=== PATIENT | male | born 1950 | race Caucasian/White ===

== ENCOUNTER 2022-11-14 17:53 | Inpatient (IN) | payer MEDICARE, BC ==
[~2022-11-14] VITALS: Ht 167.6 cm; Wt 100.7 kg
[2022-11-14] MEDS ORDERED: ADENOSINE 6 MG/2 ML VIAL ONE ×3 (18:04→18:15)
--- NOTE | 2022-11-14 18:10 | NUR ---
md and rt at bedside
[2022-11-14] MEDS ORDERED: ADENOSINE 6 MG/2 ML VIAL IVP ONE ×2 (18:13→18:15)
--- NOTE | 2022-11-14 18:13 | NUR ---
adenosine 6mg ivp given as indicated, hr-167
--- NOTE | 2022-11-14 18:14 | NUR ---
adenosine 12mg ivp given as indicated, hr-155
--- NOTE | 2022-11-14 18:24 | NUR ---
MOVE SHEET SUBMITTED.
[2022-11-14] MEDS ORDERED: DILTIAZEM HCL 50 MG IV ONE (18:27)
[2022-11-14] MEDS ORDERED: DILTIAZEM HCL 25 MG IV IVP ONE (18:30)
[2022-11-14] MEDS ORDERED: DILTIAZEM HCL IV 125 MG in IV D5W 100 ML IV ONE (18:30)
--- NOTE | 2022-11-14 18:40 | NUR ---
urine collected and sent to lab
--- NOTE | 2022-11-14 18:40 | NUR ---
covid swab collected and sent to lab
[2022-11-14] MEDS ORDERED: TAMS-12 PO (19:10)
[2022-11-14] MEDS ORDERED: FERR325T23 PO (19:10)
[2022-11-14] MEDS ORDERED: OMEP40CA21 PO (19:10)
[2022-11-14] MEDS ORDERED: AMLO-213 PO (19:10)
[2022-11-14] MEDS ORDERED: METO200T49 PO (19:10)
[2022-11-14] MEDS ORDERED: IRBE300T19 PO (19:10)
[2022-11-14] MEDS ORDERED: ZINC50TA65 PO (19:10)
[2022-11-14] MEDS ORDERED: ALLO100T PO (19:10)
[2022-11-14] MEDS ORDERED: FURO20TA4 PO (19:10)
[2022-11-14] MEDS ORDERED: CHOL100043 PO (19:11)
--- NOTE | 2022-11-14 19:20 | NUR ---
CARDIZEM DRIP INCREASED TO 20ML/HR, HR-150, BP-140/84 Addendum: 11/14/22 at 1935 by SARI correction: cardizem drip increased to 15ml/hr
[2022-11-14] MEDS ORDERED: AMIODARONE 150 MG in IV D5W 100 ML IV ONE (19:30)
[2022-11-14] MEDS ORDERED: AMIODARONE 450 MG in IV D5W 250 ML IV ONE (19:30)
--- NOTE | 2022-11-14 19:35 | NUR ---
RECEIVED PT IN ER ROOM 8, PT IS ALERT AND ORIENTED. RR IS EVEN AND NON LABORED. PT IS FROM HOME, AMBULATORY. CONNECTED TO POX AND HEART MONITOR. IV LINE NOTED ON RAC20G AND [id number]. PTS HR 152 ON CARDIZEM DRIP @20MG/HR, AWARE. WILL CONTINUE TO MONITOR
[2022-11-14 19:54] LABS: CALCIUM, SERUM 8.8 mg/dL (8.5-10.1); CARBON DIOXIDE 23 mmol/L (21-32); CHLORIDE 100 mmol/L (98-107); CREATININE 1.9 mg/dL (0.6-1.3); GLUCOSE 302 mg/dL (74-106); SODIUM SERUM 137 mmol/L (136-145); UREA NITROGEN, BLOOD 28 mg/dL (7-18)
[2022-11-14 20:07] LABS: BASOPHILS % (AUTO) 0.4 % (0.0-2.0); EOSINOPHILS % (AUTO) 6.4 % (0.0-6.0); HEMATOCRIT 44 % (39-51); HEMOGLOBIN 14.2 g/dL (13.5-17.5); LYMPHOCYTES # (AUTO) 1.2 K/uL (0.8-4.8); LYMPHOCYTES % (AUTO) 11.4 % (20.0-44.0); MEAN CORPUSCULAR HGB CONC 32 g/dl (31.0-36.0); MEAN CORPUSCULAR VOLUME 77 fL (80-96); MONOCYTES # (AUTO) 0.7 K/uL (0.1-1.30); MONOCYTES % (AUTO) 6.9 % (2.0-12.0); NEUTROPHILS # (AUTO) 7.7 K/uL (1.8-8.9); NEUTROPHILS % (AUTO) 74.9 % (43.0-81.0); PLATELET COUNT (AUTO) 186 K/uL (150-450); RED BLOOD CELL COUNT(AUTO) 5.74 MIL/uL (4.5-6.0); WHITE BLOOD COUNT (AUTO) 10.3 K/uL (4.3-11.0)
--- NOTE | 2022-11-14 20:55 | NUR ---
FOOD AND DRINK PROVIDED, PT TOLERATING WELL
--- NOTE | 2022-11-14 21:15 | NUR ---
ROOM 105
[2022-11-14 21:25] LABS: MAGNESIUM 2.1 mg/dL (1.8-2.4)
--- NOTE | 2022-11-14 21:27 | NUR ---
REPORT GIVEN TO PRINCESS CARBALLO FOR MICHAEL
[2022-11-14] MEDS ORDERED: IV NS 0.9% 1,000 ML IV ONE (21:30)
[2022-11-14] MEDS ORDERED: POTASSIUM CL. PREMIX PERIPHER. 200 ML ONE (21:35)
[2022-11-14 21:38] LABS: THYROID STIMULATING HORMONE 2.184 uIU/mL (0.358-3.74)
[2022-11-14] MEDS: Magnesium 1GM/D5W 100ML PREMIX 100 ML IV SCH ×2 (21:52→23:29)
[2022-11-14] MEDS ORDERED: ENOXAPARIN SODIUM 100 MG/ML DISP.SYRIN SQ STA (21:52)
[2022-11-14] MEDS ORDERED: ASPIRIN 81 MG TAB.CHEW PO STA (21:52)
[2022-11-14] MEDS: POTASSIUM CL. PREMIX PERIPHER. 50 ML IV SCH ×2 (21:57→22:50)
[2022-11-14] MEDS ORDERED: ZOLPIDEM TARTRATE 5 MG TABLET PO PRN (22:00)
[2022-11-14] MEDS ORDERED: ONDANSETRON HCL/PF 4 MG/2 ML VIAL IVP PRN (22:00)
[2022-11-14] MEDS ORDERED: MAG HYDROX/AL HYDROX/SIMETH 30 ML UDC PO PRN (22:00)
[2022-11-14] MEDS ORDERED: ACETAMINOPHEN 325 MG TABLET PO PRN (22:00)
[2022-11-14] MEDS ORDERED: Z GUARD REMEDY 4 OZ OINT TP PRN (22:00)
[2022-11-14] MEDS ORDERED: MAGNESIUM HYDROXIDE 30 ML UDC PO PRN (22:00)
[2022-11-14] MEDS ORDERED: ENOXAPARIN SODIUM 100 MG/ML DISP.SYRIN SQ ONE (22:02)
[2022-11-14] MEDS ORDERED: ASPIRIN 325 MG TABLET ONE (22:02)
--- NOTE | 2022-11-14 22:14 | NUR ---
PATIENT BEING TRANSFFERED TO 105
--- NOTE | 2022-11-14 23:00 | NUR ---
RN INITIAL NOTE PT ARRIVED TO UNIT VIA GURNEY; ABLE TO AMBULATE TO BED FROM [facility]. PT ADMITTED [facility] AFIB RVR WITH MEDICAL HISTORY OF HTN, HLD, DM. DENIES SMOKING; DRINKS WINE AND COCKTAILS ON OCCASION. PT A&O X4, CALM, COOPERATIVE. PT ON ROOM AIR WITH CURRENT O2SAT OF 93%; PT DENIES FEELING SOB; NO OTHER S/S OF RESP DISTRESS NOTED. PT ATTACHED TO EXTERNAL MONITOR, CURRENTLY AFIB WITH HR OF 92. IV ACCESS ON RAC 20G AND RIGHT WRIST 20G, INTACT AND PATENT, WITH AMIO INFUSING AT 1 MG/MIN WITH RATE OF 33.3 ML/HR; WILL DECREASE DOSE TO 0.5 MG/MIN AT 0215; POTASSIUM ALSO INFUSING AT 50 ML/HR. BED IN LOWEST POSITION, CALL LIGHT WITHIN REACH, SIDE RAILS UP X2. WILL INITIATE PLAN OF CARE.
--- NOTE | 2022-11-14 23:04 | NUR ---
2304 Critical serial troponin results 111 @ 2040 and 132 @ 2202 reported to IV THERAPY NURSE Hilda with no order at this time.
[2022-11-15] VITALS: BP 142/76
[2022-11-15] MEDS ORDERED: DEXTROSE 50%-WATER 50 ML DISP.SYRIN IV PRN (00:30)
[2022-11-15] MEDS: POTASSIUM CL. PREMIX PERIPHER. 50 ML IV SCH ×2 (01:13→01:56)
[2022-11-15] MEDS ORDERED: AMIODARONE 150 MG/3 ML VIAL IV ONE (02:14)
--- NOTE | 2022-11-15 02:15 | NUR ---
RN NOTE AMIO DRIP DOSE RATE DECREASED TO 0.5 MG/MIN AT 16.67 ML/HR
[2022-11-15 04:00] VITALS: BP 158/87
[2022-11-15 04:48] LABS: BASOPHILS % (AUTO) 0.4 % (0.0-2.0); EOSINOPHILS % (AUTO) 3.6 % (0.0-6.0); HEMATOCRIT 39 % (39-51); HEMOGLOBIN 12.3 g/dL (13.5-17.5); LYMPHOCYTES # (AUTO) 0.7 K/uL (0.8-4.8); LYMPHOCYTES % (AUTO) 8.2 % (20.0-44.0); MEAN CORPUSCULAR HGB CONC 31 g/dl (31.0-36.0); MEAN CORPUSCULAR VOLUME 77 fL (80-96); MONOCYTES # (AUTO) 0.8 K/uL (0.1-1.30); NEUTROPHILS # (AUTO) 6.2 K/uL (1.8-8.9); NEUTROPHILS % (AUTO) 77.8 % (43.0-81.0); PLATELET COUNT (AUTO) 171 K/uL (150-450); RED BLOOD CELL COUNT(AUTO) 5.06 MIL/uL (4.5-6.0)
[2022-11-15 04:55] LABS: CALCIUM, SERUM 8.6 mg/dL (8.5-10.1); CHLORIDE 101 mmol/L (98-107); CREATININE 1.8 mg/dL (0.6-1.3); GLUCOSE 268 mg/dL (74-106); MAGNESIUM 2.8 mg/dL (1.8-2.4); PHOSPHORUS 3.2 mg/dL (2.5-4.9); POTASSIUM 3.3 mmol/L (3.5-5.1); SODIUM SERUM 136 mmol/L (136-145); UREA NITROGEN, BLOOD 23 mg/dL (7-18)
[2022-11-15] MEDS ORDERED: AMIODARONE 450 MG in IV D5W 241 ML IV PRN (05:00)
--- NOTE | 2022-11-15 05:15 | NUR ---
0515 Critical troponin 233 reported to THADDEUS Stevens with order made.
[2022-11-15 05:46] LABS: BASOPHILS % (MANUAL) 0 % (0.0-2.0); EOSINOPHILS % (MANUAL) 2 % (0-4); LYMPHOCYTES % (MANUAL) 6 % (16-48); MONOCYTES % (MANUAL) 12 % (0-11.0); NEUTROPHILS % (MANUAL) 80 (42-76)
[2022-11-15 06:10] LABS: CARBON DIOXIDE 25 mmol/L (21-32)
--- NOTE | 2022-11-15 06:49 | NUR ---
MEKHI RN CLOSING NOTE PT REMAINS IN BED, ASLEEP BUT EASILY AROUSABLE; SLEPT WELL THROUGHOUT THE NIGHT; A&O X4, CALM, COOPERATIVE. CONTINUES TO BE ON ROOM AIR WITH O2SAT RANGING FROM 93%-97%; NO S/S OF RESP DISTRESS. ATTACHED TO EXTERNAL MONITOR, ACHIEVED SR WITH HR RANGING FROM 78-81; HR GOT HIGH 130S WHEN PT WAS AMBULATING TO RESTROOM. RAC AND RIGHT WRIST 20G INTACT AND PATENT, FLUSHES EASILY WITH NO RESISTANCE; AMIO 0.5 MG/MIN AT 16.67 ML/HR AND NS TKO INFUSING. ALL DUE MEDS ADMINISTERED DURING THE NIGHT. BED IN LOWEST POSITION, CALL LIGHT WITHIN REACH, SIDE RAILS UP X2. WILL ENDORSE TO DAYSHIFT NURSE TO CONTINUE CARE.
--- NOTE | 2022-11-15 07:05 | NUR ---
MEKHI RN OPENING NOTE: RECEIVED PT. IN BED, AWAKE, A&O X4, NO COMPLAINTS OF PAIN/DISCOMFORT AT THIS TIME. PT ON RA, NO S/S OF RESPIRATORY DISTRESS. NURSE RECRUITER READS NSR AT THIS TIME. AMBULATES TO THE BATHROOM WITH MIN ASSIST, VOIDING CLEAR YELLOW URINE, NO PAIN/DISCOMFORT REPORTED WHILE VOIDING. SKIN INTACT. IV ACCESS ON R WRIST 20G WITH AMIODARONE DRIP RUNNING AT 6.6 ML/HR; R AC #20G GOT DISLODGED, REMOVED AND PRESSURE DRESSING APPLIED. SAFETY MEASURES IN PLACE: BED IN LOWEST & LOCKED POSITION, CALL LIGHT WITHIN REACH, SIDE RAILS UP X3, HOB ELEVATED AT 30 DEGREES, CALL LIGHT WITHIN REACH, BED ALARM ON. WILL CONTINUE TO MONITOR PT. FOR ANY CHANGES.
[2022-11-15] MEDS: BLOOD SUGAR DIAGNOSTIC 1 EACH STRIP VI SCH ×4 (07:54→21:10)
[2022-11-15 08:00] VITALS: BP 159/85
[2022-11-15] MEDS: AMLODIPINE BESYLATE 10 MG TABLET PO SCH (08:11)
[2022-11-15] MEDS: ZINC SULFATE 220 MG CAPSULE PO SCH (08:11)
[2022-11-15] MEDS: CHOLECALCIFEROL 1,000 UNIT TABLET (VIT D3) PO SCH (08:11)
[2022-11-15] MEDS: ALLOPURINOL 100 MG TABLET PO SCH (08:11)
[2022-11-15] MEDS: TAMSULOSIN 0.4 MG CAP.SR.24H PO SCH (08:11)
[2022-11-15] MEDS: PANTOPRAZOLE 40 MG TABLET.DR PO SCH ×2 (08:11→16:28)
[2022-11-15] MEDS: hydrALAZINE HCL 50 MG TABLET PO SCH ×3 (08:16→16:28)
[2022-11-15] MEDS: INSULIN REGULAR, HUMAN 100 UNIT/ML 3 ML VIAL SQ PRN ×3 (08:19→17:31)
[2022-11-15] MEDS ORDERED: LOSARTAN POTASSIUM 50 MG TABLET PO SCH (09:00)
[2022-11-15] MEDS ORDERED: FERROUS SULFATE (325 MG) 325 MG/TAB TABLET PO SCH (09:00)
[2022-11-15] MEDS ORDERED: APIXABAN 2.5 MG TABLET PO SCH (09:00)
[2022-11-15] MEDS: ENOXAPARIN SODIUM 80 MG/0.8 ML DISP.SYRIN SQ SCH ×2 (09:37→20:57)
[2022-11-15] MEDS: NITROGLYCERIN 30 GM TUBE TP SCH ×2 (09:37→20:43)
[2022-11-15] MEDS: IV NS 0.9% 1,000 ML IV PRN ×2 (10:04→21:06)
[2022-11-15 12:00] VITALS: BP 142/68
[2022-11-15] MEDS ORDERED: POTASSIUM CHLORIDE 10 MEQ TABLET.SA PO ONE (12:00)
--- NOTE | 2022-11-15 12:30 | NUR ---
[employer] FSCM DEVELOPER NOTE: POTASSIUM AT 3.3 TODAY, 10 MEQ GIVEN PER MD ORDER.
[2022-11-15 16:00] VITALS: BP 134/71
--- NOTE | 2022-11-15 19:10 | NUR ---
MEKHI RN CLOSING NOTE: PT. REMAINS IN BED, AWAKE, A&O X4, NO COMPLAINTS OF PAIN/DISCOMFORT AT THIS TIME. PT ON RA, NO S/S OF RESPIRATORY DISTRESS. KETTLE OPERATOR HEAD READS NSR THIS SHIFT. AMBULATES TO THE BATHROOM WITH MIN ASSIST, VOIDED 2X CLEAR YELLOW URINE, NO PAIN/DISCOMFORT REPORTED WHILE VOIDING. 1 BM. SKIN INTACT. IV ACCESS ON R FOREARM #20G, WITH NS RUNNING AT 100 ML/HR. IV SITE DRESSING C/D/I WITH NO S/S OF INFILTRATION. SAFETY MEASURES MAINTAINED: BED IN LOWEST & LOCKED POSITION, CALL LIGHT WITHIN REACH, SIDE RAILS UP X3, HOB ELEVATED AT 30 DEGREES, CALL LIGHT WITHIN REACH, BED ALARM ON. ENCOURAGED FREQUENT REPOSITIONING IN BED AT LEAST Q2H. ENDORSED CONTINUITY OF CARE TO INDUSTRIAL RELATIONS COMMISSIONER RN.
--- NOTE | 2022-11-15 19:12 | NUR ---
RN NOTE RECEIVED PT FOR CONTINUITY OF CARE. PATIENT A/OX4 IN NO S/SX OF ACUTE DISTRESS AT THIS TIME; CURRENTLY ON ROOM AIR; WITH 02 SAT >95% AT THIS TIME. WITH IV ACCESS PATENT, INTACT AND FLUSHING WELL. WITH RUNNING NS@100CC/HR. WILL ENSURE SAFETY MEASURES WITHIN THE SHIFT. PATIENT BED ALARM IS ON. HEAD OF BED ELEVATED. BED IS LOCKED, IN LOWEST POSITION AND SIDE RAILS UP. CALL LIGHT WITHIN REACH OF THE PATIENT. WILL CONTINUE TO MONITOR AND REASSESS FOR ANY CHANGES AND WILL CARRY OUT ANY ONGOING AND ACTIVE MD ORDER.
[2022-11-15 20:00] VITALS: BP 124/67
[2022-11-15] MEDS: *INSULIN REGULAR(HUMULIN R)HUM 100 UNIT/ML VIAL SQ PRN (21:12)
[2022-11-16] VITALS: BP 137/74
--- NOTE | 2022-11-16 03:15 | NUR ---
RN NOTE RECEIVED CALL FROM [employer] VERIFYING DOSE OF LOVENOX. CONFIRMED AND VERIFIED WITH THADDEUS OLIVEIRA (BAKARI CARDONA) LOVENOX 40MG Q12H FOR PROPHYLAXIS FOR NOW. [facility] ACKNOWLEDGED. PATHOLOGY LABORATORY DIRECTOR WELL AWARE.
[2022-11-16 04:00] VITALS: BP 132/64
--- NOTE | 2022-11-16 04:00 | NUR ---
RN NOTE SECURED NEW IV ACCESS ON R HAND#22; PATENT, INTACT AND FLUSHING WELL.
[2022-11-16 06:28] LABS: BASOPHILS # (AUTO) 0.1 K/uL (0.0-0.2); BASOPHILS % (AUTO) 0.7 % (0.0-2.0); EOSINOPHILS % (AUTO) 2.6 % (0.0-6.0); HEMATOCRIT 38 % (39-51); HEMOGLOBIN 12.1 g/dL (13.5-17.5); LYMPHOCYTES # (AUTO) 1.7 K/uL (0.8-4.8); LYMPHOCYTES % (AUTO) 19.7 % (20.0-44.0); MEAN CORPUSCULAR HGB CONC 32 g/dl (31.0-36.0); MEAN CORPUSCULAR VOLUME 78 fL (80-96); MONOCYTES # (AUTO) 0.6 K/uL (0.1-1.30); MONOCYTES % (AUTO) 7.3 % (2.0-12.0); NEUTROPHILS % (AUTO) 69.7 % (43.0-81.0); PLATELET COUNT (AUTO) 162 K/uL (150-450); RED BLOOD CELL COUNT(AUTO) 4.87 MIL/uL (4.5-6.0); WHITE BLOOD COUNT (AUTO) 8.6 K/uL (4.3-11.0)
--- NOTE | 2022-11-16 06:50 | NUR ---
RN CLOSING NOTE: PATIENT REMAINS IN ROOM IN NO SIGNS OF RESPIRATORY DISTRESS, PATIENT STILL ON ROOM AIR;TOLERATING WELL SATURATING @ >95% SP02. SAFETY MEASURES IMPLEMENTED, BED IN LOWEST POSITION, LOCKED, SIDE RAILS UP, CALL LIGHT WITHIN REACH. ALL NEEDS AND ORDERS ADDRESSED DURING THE SHIFT. IV ACCESS MAINTAINED INTACT, SECURED AND FLUSHING WELL. ALL DUE MEDS GIVEN ORDERED & SCHEDULED ; PATIENT TOLERATED WELL. PATIENT KEPT CLEAN AND COMFORTABLE WITHIN THE SHIFT. PATIENT ENDORSED TO INCOMING SHIFT RN WITH STABLE VITAL SIGN AND FOR CONTINUITY OF CARE.
[2022-11-16 07:17] LABS: ALANINE AMINOTRANSFERASE 83 U/L (12-78); ALBUMIN 2.6 g/dL (3.4-5.0); ALKALINE PHOSPHATASE 69 U/L (46-116); ASPARTATE AMINOTRANSFERASE 44 U/L (15-37); BILIRUBIN,TOTAL 0.3 mg/dL (0.2-1.0); CALCIUM, SERUM 8.3 mg/dL (8.5-10.1); CARBON DIOXIDE 23 mmol/L (21-32); CHLORIDE 105 mmol/L (98-107); CREATININE 1.7 mg/dL (0.6-1.3); GLUCOSE 219 mg/dL (74-106); MAGNESIUM 2.4 mg/dL (1.8-2.4); PHOSPHORUS 2.8 mg/dL (2.5-4.9); POTASSIUM 3.5 mmol/L (3.5-5.1); SODIUM SERUM 137 mmol/L (136-145); TOTAL PROTEIN, SERUM 5.6 g/dL (6.4-8.2); UREA NITROGEN, BLOOD 24 mg/dL (7-18)
--- NOTE | 2022-11-16 07:30 | NUR ---
TD RN AM NOTE RECEIVED PT FOR CONTINUITY OF CARE. PATIENT A/OX4, ON ROOM AIR, O2 SAT >95%, DENIES SOB, RESPIRATION UNLABORED, SR HR 93 ON MONITOR, DENIES CHEST PAIN/DISCOMFORT, RFA G20 WITH NS AT 100 ML/HR INFUSING WELL, SITE CLEAR. CCHO DIET. BRP, AMBULATES WITH ASSIST. POC DISCUSSED, VERBALIZED UNDERSTANDING. SAFETY MEASURES IN PLACE, PATIENT BED ALARM IS ON. HEAD OF BED ELEVATED. BED IS LOCKED, IN LOWEST POSITION AND SIDE RAILS UP. CALL LIGHT WITHIN REACH OF THE PATIENT. WILL CONTINUE TO MONITOR.
--- NOTE | 2022-11-16 07:52 | NUR ---
TD RN NOTES INFORMED AND CLARIFIED WITH DR. TELLEZ REGARDING PATIENT OFF AMIODARONE DRIP X 29 HOURS BUT NO ORDERS. ORDER RECEIVED: DC AMIODARONE DRIP.
[2022-11-16] MEDS: BLOOD SUGAR DIAGNOSTIC 1 EACH STRIP VI SCH ×2 (07:57→12:23)
[2022-11-16] MEDS: PANTOPRAZOLE 40 MG TABLET.DR PO SCH (07:57)
[2022-11-16 08:00] VITALS: BP 155/86
--- NOTE | 2022-11-16 08:06 | NUR ---
RN NOTES DC MEKHI STATUS. DOWNGRADE TO TELE
[2022-11-16] MEDS: TAMSULOSIN 0.4 MG CAP.SR.24H PO SCH (08:22)
[2022-11-16] MEDS: CHOLECALCIFEROL 1,000 UNIT TABLET (VIT D3) PO SCH (08:23)
[2022-11-16] MEDS: ALLOPURINOL 100 MG TABLET PO SCH (08:23)
[2022-11-16] MEDS: ZINC SULFATE 220 MG CAPSULE PO SCH (08:24)
[2022-11-16] MEDS: AMLODIPINE BESYLATE 10 MG TABLET PO SCH (08:28)
[2022-11-16] MEDS: hydrALAZINE HCL 50 MG TABLET PO SCH ×2 (08:28→13:04)
[2022-11-16] MEDS: ENOXAPARIN SODIUM 80 MG/0.8 ML DISP.SYRIN SQ SCH (08:30)
[2022-11-16] MEDS: *INSULIN REGULAR(HUMULIN R)HUM 100 UNIT/ML VIAL SQ PRN (08:32)
[2022-11-16] MEDS ORDERED: AMIODARONE HCL 200 MG TABLET PO SCH (09:00)
[2022-11-16] MEDS ORDERED: APIXABAN 2.5 MG TABLET PO SCH (09:00)
[2022-11-16] MEDS: NITROGLYCERIN 30 GM TUBE TP SCH (09:23)
--- NOTE | 2022-11-16 09:30 | NUR ---
RN NOTES DUE MEDS GIVEN
--- NOTE | 2022-11-16 11:40 | NUR ---
RN NOTES INCIDENT REPORT ON FILE Unique Id: [id number]
[2022-11-16 12:00] VITALS: BP 133/74
[2022-11-16] MEDS ORDERED: APIX2.5T PO (12:12)
[2022-11-16] MEDS ORDERED: AMIO200T7 PO (12:12)
[2022-11-16] MEDS: INSULIN REGULAR, HUMAN 100 UNIT/ML 3 ML VIAL SQ PRN (12:26)
[2022-11-16] MEDS ORDERED: AMIO200T5 PO (12:39)
[2022-11-16 13:04] VITALS: BP 133/74
--- NOTE | 2022-11-16 13:17 | NUR ---
RN NOTES PATIENT TO BE DISCHARGED TO HOME PER MD IN STABLE CONDITION. PROVIDED DC INSTRUCTIONS, HEALTH TEACHINGS AND MED RECON LIST. PATIENT TO FOLLOW UP WITH PCP IN 1-2 WEEKS AND WILL CALL FOR APPOINTMENT. IV ACCESS ON RIGHT HAND REMOVED. APPLIED PRESSURE AND DRESSING. NO BLEEDING. ALL BELONGINGS CHECKED AND RETURNED TO INCLUDE THE ONES WITH NURSING HEARING OFFICER SAFETY BOX. ALL PAPER WORKS SIGNED. TO BE PICKED UP BY AND WILL TAKE HOME VIA PRIVATE CAR.
--- NOTE | 2022-11-16 14:51 | NUR ---
RN NOTES PATIENT WHEELED TO LOBBY BY ELBA CRUZ. PICKED UP BY VIA PRIVATE CAR
== END 2022-11-16 14:52 | disposition home or self-care (01) | DRG 280 ==
LOC: ER 18:12 → TELE-TD 21:26 → TELE1 11-16 09:22
PROVIDERS: ADMIT Nurse Practitioner Acute Care; ATTEND Internal Medicine
DX: I48.91 Unspecified atrial fibrillation (principal); N17.0 Acute kidney failure with tubular necrosis; I21.A1 Myocardial infarction type 2; E87.6 Hypokalemia; I12.9 Hypertensive chronic kidney disease with stage 1 through stage 4 chronic kidney disease, or unspecified chronic kidney disease; N18.30 Chronic kidney disease, stage 3 unspecified; Z20.822 Contact with and (suspected) exposure to COVID-19; E11.22 Type 2 diabetes mellitus with diabetic chronic kidney disease; Z68.35 Body mass index [BMI] 35.0-35.9, adult; E66.9 Obesity, unspecified; E78.5 Hyperlipidemia, unspecified; Z79.899 Other long term (current) drug therapy; N40.0 Benign prostatic hyperplasia without lower urinary tract symptoms; G47.33 Obstructive sleep apnea (adult) (pediatric); E86.1 Hypovolemia
CPT/HCPCS: 36415; 71045-TC; 76700-TC; 76870-TC; 80048-TC; 80053-TC; 82962-TC; 83735-TC; 84100-TC; 84443-TC; 84484-TC; 85025-TC; 87081-TC; 93307-TC; G0378; J0153; J0282; J1650; J1815; J3475; J3480; J3490; J7030; J7060